=== PATIENT | female | born 1980 | race Caucasian/White ===

== ENCOUNTER 2021-05-06 19:17 | Emergency (ER) | payer OTHER ==
[2021-05-06] MEDS ORDERED: Apixaban 5 MG Tab PO ONE (21:19)
== END 2021-05-06 21:45 | disposition home or self-care (01) ==
LOC: JD.ED 19:17
DX: I82.452 Acute embolism and thrombosis of left peroneal vein (principal); Z72.0 Tobacco use; Z79.01 Long term (current) use of anticoagulants
CPT/HCPCS: 36415; 80048; 85025; 85610; 93971; 99284; A9270